=== PATIENT | male | born 1960 | race Caucasian/White ===

== ENCOUNTER → 2023-02-23 | Outpatient (CLI) | payer SELFPAY ==
[2023-02-23 07:39] LABS: HEMATOCRIT 52.4 % (42.0-52.0); MEAN CELL VOLUME 94.9 fl (80.0-94.0); MEAN CORPUSCULAR HGB 32.1 pg (27.0-31.0); MEAN CORPUSCULAR HGB CONC 33.8 g/dl (33.0-37.0); MEAN PLATELET VOLUME 8.7 fl (9.6-12.3); RED BLOOD COUNT 5.52 10*6/uL (4.50-5.90); RED CELL DISTRI WIDTH 13.1 % (0-14.5); WHITE BLOOD COUNT 6.8 10*3/uL (4.8-10.8)
[2023-02-23 08:19] LABS: ALKALINE PHOSPHATASE 40 U/L (46-116); BUN 9 mg/dl (9-23); CHLORIDE 110 mmol/L (98-107); CHOLESTEROL 202 mg/dL (<200); FREE T4 1.06 ng/dl (0.89-1.76); LDL CHOLESTEROL 101 mg/dL (9-159); POTASSIUM 4.7 mmol/L (3.4-5.1); SGPT/ALT 17 U/L (5-49); TOTAL PROTEIN 6.9 gm/dL (6.0-8.0); TRIGLYCERIDES 55 mg/dl (<150)
== END | disposition home or self-care (01) ==
LOC: LAB 07:17
PROVIDERS: ATTEND Family Medicine
DX: Z12.5 Encounter for screening for malignant neoplasm of prostate (principal); E78.00 Pure hypercholesterolemia, unspecified; E55.9 Vitamin D deficiency, unspecified; I10 Essential (primary) hypertension; R53.83 Other fatigue; F17.200 Nicotine dependence, unspecified, uncomplicated; R31.9 Hematuria, unspecified

== ENCOUNTER → 2023-02-27 | Outpatient (CLI) | payer SELFPAY | END | disposition home or self-care (01) | LOC: LAB 12:54 | PROVIDERS: ATTEND Family Medicine | DX: R97.20 Elevated prostate specific antigen [PSA] (principal) ==

== ENCOUNTER → 2023-03-01 | Outpatient (CLI) | payer SELFPAY ==
[2023-03-05 20:07] LABS: % FREE PSA 16.4 % (.); FREE PSA 1.135 ng/mL (.)
== END | disposition home or self-care (01) ==
LOC: LAB 11:19
PROVIDERS: ATTEND Family Medicine
DX: R97.20 Elevated prostate specific antigen [PSA] (principal)

== ENCOUNTER → 2023-06-05 | Outpatient (CLI) | payer SELFPAY ==
[2023-06-10 18:06] LABS: % FREE PSA 12.8 % (.); FREE PSA 0.64 ng/mL (.)
== END | disposition home or self-care (01) ==
LOC: LAB 13:35
PROVIDERS: ATTEND Family Medicine
DX: F10.90 Alcohol use, unspecified, uncomplicated (principal); R97.20 Elevated prostate specific antigen [PSA]; Z79.899 Other long term (current) drug therapy

== ENCOUNTER → 2023-09-09 | Outpatient (CLI) | payer OTHER, MEDICARE ==
[2023-09-09 13:57] LABS: HEMATOCRIT 44.8 % (42.0-52.0); MEAN CELL VOLUME 97.2 fl (80.0-94.0); MEAN CORPUSCULAR HGB 32.1 pg (27.0-31.0); MEAN PLATELET VOLUME 8.5 fl (9.6-12.3); RED BLOOD COUNT 4.61 10*6/uL (4.50-5.90); RED CELL DISTRI WIDTH 13.2 % (0-14.5); WHITE BLOOD COUNT 6.6 10*3/uL (4.8-10.8)
[2023-09-09 14:14] LABS: ALKALINE PHOSPHATASE 39 U/L (46-116); BUN 11 mg/dl (9-23); CHLORIDE 107 mmol/L (98-107); SGPT/ALT 14 U/L (5-49); TOTAL PROTEIN 6.7 gm/dL (6.0-8.0)
== END | disposition home or self-care (01) ==
LOC: LAB 12:40
PROVIDERS: ATTEND Family Medicine
DX: R07.9 Chest pain, unspecified (principal); I10 Essential (primary) hypertension; Z82.3 Family history of stroke; F17.210 Nicotine dependence, cigarettes, uncomplicated